=== PATIENT | male | born 1930 | race Caucasian/White ===

== ENCOUNTER 2016-04-29 10:52 | Inpatient (IN) | payer MEDICARE, OTHER ==
[~2016-04-29 10:52] MED LIST: ABACAVIR300 M1; ALL DAY ALLERGY10 M7 PO; ALTACHLORE OP; AUGMENTIN 500-1 EAC2 PO; BOOST237 ML PO; CALCIUM + VITA1 EAC1 PO; CALCIUM500 M1 PO; CLEOCIN HCL300 MG PO; COLACE100 M1 PO; COUMADIN2.5 M1 PO; COUMADIN2.5 MG PO; COUMADIN5 M1 PO; COUMADIN5 M2 PO; COUMADIN5 MG PO; COUMADIN7.5 M1 PO; COUMADIN7.5 MG PO; DOCETAXEL20 MG/1 ML IV; ELIGARD22.5 MG SQ; FERROUS GLUCON324 MG PO; FUROSEMIDE40 M2 PO; HORMONE; K-DUR20 ME1 PO; KETOCONAZOLE200 MG PO; KONSYL FORMULA PO; LASIX20 MG PO; LEVOTHYROXINE100 MC1 PO; LOVENOX100 MG/ML SQ; LUBRICATING TOP; LUPRON DEP IM; MEGACE400 MG/11 PO; MEGESTROL ACETA20 MG PO; MIDODRINE HCL10 M1 PO; MILK OF MAGNESIA PO; MINOCIN100 M2 PO; MIRALAX17 G1 PO; MIRALAX17 G2 PO; MORPHINE SULFAT15 M1 PO; MORPHINE SULFAT15 MG PO; MS CONTIN30 M1 PO; MULTI VITAMIN1 EAC1 PO; MULTIVITAMINS1 EAC6 PO; NORCO 5/3251 TA1 PO; NORCO 5/3251 TAB PO; OS-CAL 500+D31 EAC1 PO; PACERONE200 M1 PO; PANTOPRAZOLE SO40 M3 PO; PAROXETINE HCL PO; PAROXETINE HCL20 M1 PO; POTASSIUM CHLO10 ME2 PO; POTASSIUM CHLO20 MEQ PO; PREDNISOLONE5 MG PO; PREDNISONE5 MG PO; PROCHLORPERAZIN10 MG PO; PROTONIX40 M1 PO; REFRESH OPTIVE1 EAC2 OP; SALSALATE500 MG PO; STOOL SOFTENER100 M1 PO; TRIAMCINOLONE A15 GM TP; TYLENOL325 MG PO; VENLAFAXINE HCL25 M1 PO; XTANDI40 M1 PO; ZOFRAN4 M2 PO; ZOFRAN8 MG PO; ZOMETA4 MG/5 ML IV; ZYTIGA250 MG PO; [UNRECOGNIZED DRUG - OTHER] IM; [UNRECOGNIZED DRUG - OTHER] IV; magic mouthwash PO
[2016-04-29] MEDS ORDERED: ZYRTEC1010 PO (11:19)
[2016-04-29] MEDS ORDERED: GUAIFENESIN400 M1 PO (11:20)
[2016-04-29] MEDS ORDERED: GUAIFENESIN DM S5 M1 PO (11:20)
[2016-04-29 12:12] LABS: URINE BILIRUBIN NEGATIVE (NEG); URINE BLOOD LARGE (NEG); URINE GLUCOSE (UA) NEGATIVE (NEG); URINE KETONE NEGATIVE (NEG); URINE LEUKOCYTE ESTERASE NEGATIVE (NEG); URINE NITRITE NEGATIVE (NEG); URINE PROTEIN LARGE (NEG); URINE SPECIFIC GRAVITY 1.015 (1.003-1.030)
[2016-04-29 12:15] LABS: URINE APPEARANCE CLOUDY; URINE COLOR RED
[2016-04-29 12:17] LABS: INR 2.1 INR (0.9-1.1); PROTHROMBIN TIME 24.6 SECONDS (9.0-13.6)
[2016-04-29 12:18] LABS: BASO % 0.2 % (0-2); HCT-HEMATOCRIT 25.9 % (36.0-53.5); HGB-HEMOGLOBIN 8.3 gm/dl (13.5-17.0); IMMATURE GRANULOCYTES ABSOLUTE 0.04 tho/cmm (0-0.03); LYMPH % 12.1 % (20-45); LYMPH ABSOLUTE COUNT 0.5 tho/cmm (0.8-4.5); MCH (MEAN CORPUSCULAR HGB) 31.4 pg (28.0-32.0); MCV (MEAN CELL VOLUME) 98.1 fl (82.0-96.0); MEAN PLATELET VOLUME 10.2 cmc (9.4-12.4); MONO % 9.4 % (0-12); MONOCYTE ABSOLUTE COUNT 0.4 tho/cmm (0.0-1.2); NEUTROPHIL ABSOLUTE COUNT 3.1 tho/cmm (1.6-8.0); NEUTROPHIL-AUTOMATED 3.1 tho/cmm (1.6-8.0); NEUTROPHILS % 77.3 % (40-80); RED BLOOD COUNT 2.64 mil/cmm (4.40-5.70); RED CELL DISTRIBUTION WIDTH 18.7 % (12.4-16.4); WHITE BLOOD COUNT 4.1 tho/cmm (4.0-10.0)
[2016-04-29 12:19] LABS: URINE BACTERIA 1+; URINE RBC FULL FIELD /[HPF] (0-5)
[2016-04-29 12:27] LABS: ANION GAP 16 mmol/L (0-20); BLOOD UREA NITROGEN 36 mg/dl (6-24); CALCIUM 8.9 mg/dl (8.5-10.5); CARBON DIOXIDE-VENOUS 24 mmol/L (22-32); CHLORIDE 101 mmol/l (96-110); CREATININE 1.71 mg/dl (0.60-1.30); GLUCOSE 106 mg/dL (70-110); POTASSIUM 3.9 mmol/L (3.7-5.1); SODIUM 137 mmol/L (135-145); eGFR VALUE FOR BLACK 41 mL/Min
[2016-04-29 12:45] LABS: PLATELET COUNT 26 tho/cmm (150-450)
[2016-04-29] MEDS ORDERED: SODIUM CHLORID OP (15:00)
[2016-04-30 05:46] LABS: BASO % 0.4 % (0-2); HGB-HEMOGLOBIN 6.3 gm/dl (13.5-17.0); IMMATURE GRANULOCYTES ABSOLUTE 0.03 tho/cmm (0-0.03); IMMATURE GRANULOCYTES PERCENT 1.1 % (0-0.3); LYMPH ABSOLUTE COUNT 0.4 tho/cmm (0.8-4.5); MCV (MEAN CELL VOLUME) 98.5 fl (82.0-96.0); MONO % 13.2 % (0-12); MONOCYTE ABSOLUTE COUNT 0.4 tho/cmm (0.0-1.2); NEUTROPHIL ABSOLUTE COUNT 1.9 tho/cmm (1.6-8.0); NEUTROPHIL-AUTOMATED 1.9 tho/cmm (1.6-8.0); NEUTROPHILS % 71.3 % (40-80); RED BLOOD COUNT 1.97 mil/cmm (4.40-5.70); RED CELL DISTRIBUTION WIDTH 18.7 % (12.4-16.4); WHITE BLOOD COUNT 2.7 tho/cmm (4.0-10.0)
[2016-04-30 05:47] LABS: INR 2.4 INR (0.9-1.1); PROTHROMBIN TIME 28.1 SECONDS (9.0-13.6)
[2016-04-30 05:55] LABS: HCT-HEMATOCRIT 19.4 % (36.0-53.5); MCHC MEAN CORPUSCULAR HGB CONC 32.5 % (32.0-36.0); PLATELET COUNT 19 tho/cmm (150-450)
[2016-04-30 06:04] LABS: ANION GAP 13 mmol/L (0-20); BLOOD UREA NITROGEN 31 mg/dl (6-24); CALCIUM 7.8 mg/dl (8.5-10.5); CARBON DIOXIDE-VENOUS 25 mmol/L (22-32); CHLORIDE 104 mmol/l (96-110); CREATININE 1.35 mg/dl (0.60-1.30); GLUCOSE 92 mg/dL (70-110); POTASSIUM 4.1 mmol/L (3.7-5.1); SODIUM 138 mmol/L (135-145); eGFR VALUE FOR BLACK 55 mL/Min
[2016-04-30 21:36] LABS: BASO % 0.3 % (0-2); EOS % 0.3 % (0-7); HGB-HEMOGLOBIN 7.2 gm/dl (13.5-17.0); IMMATURE GRANULOCYTES ABSOLUTE 0.04 tho/cmm (0-0.03); IMMATURE GRANULOCYTES PERCENT 1.1 % (0-0.3); LYMPH % 10.8 % (20-45); LYMPH ABSOLUTE COUNT 0.4 tho/cmm (0.8-4.5); MCH (MEAN CORPUSCULAR HGB) 31.9 pg (28.0-32.0); MEAN PLATELET VOLUME 9.1 cmc (9.4-12.4); MONO % 13.7 % (0-12); MONOCYTE ABSOLUTE COUNT 0.5 tho/cmm (0.0-1.2); NEUTROPHIL ABSOLUTE COUNT 2.8 tho/cmm (1.6-8.0); NEUTROPHIL-AUTOMATED 2.8 tho/cmm (1.6-8.0); NEUTROPHILS % 73.8 % (40-80); RED BLOOD COUNT 2.26 mil/cmm (4.40-5.70); WHITE BLOOD COUNT 3.8 tho/cmm (4.0-10.0)
[2016-04-30 21:37] LABS: HCT-HEMATOCRIT 21.7 % (36.0-53.5); MCHC MEAN CORPUSCULAR HGB CONC 33.2 % (32.0-36.0)
[2016-04-30 21:42] LABS: PLATELET COUNT 36 tho/cmm (150-450)
[2016-04-30 22:10] LABS: INR 1.5 INR (0.9-1.1)
[2016-05-01 06:29] LABS: INR 1.3 INR (0.9-1.1); PROTHROMBIN TIME 15.4 SECONDS (9.0-13.6)
[2016-05-01 06:30] LABS: BASO % 0.3 % (0-2); EOS % 0.3 % (0-7); HGB-HEMOGLOBIN 7.2 gm/dl (13.5-17.0); IMMATURE GRANULOCYTES ABSOLUTE 0.06 tho/cmm (0-0.03); IMMATURE GRANULOCYTES PERCENT 1.9 % (0-0.3); LYMPH % 10.2 % (20-45); LYMPH ABSOLUTE COUNT 0.3 tho/cmm (0.8-4.5); MCH (MEAN CORPUSCULAR HGB) 31.3 pg (28.0-32.0); MCV (MEAN CELL VOLUME) 95.7 fl (82.0-96.0); MEAN PLATELET VOLUME 10.4 cmc (9.4-12.4); MONO % 10.5 % (0-12); MONOCYTE ABSOLUTE COUNT 0.3 tho/cmm (0.0-1.2); NEUTROPHIL ABSOLUTE COUNT 2.4 tho/cmm (1.6-8.0); NEUTROPHIL-AUTOMATED 2.4 tho/cmm (1.6-8.0); NEUTROPHILS % 76.8 % (40-80); WHITE BLOOD COUNT 3.1 tho/cmm (4.0-10.0)
[2016-05-01 06:35] LABS: MCHC MEAN CORPUSCULAR HGB CONC 32.7 % (32.0-36.0); PLATELET COUNT 38 tho/cmm (150-450)
[2016-05-01 06:40] LABS: ANION GAP 12 mmol/L (0-20); BLOOD UREA NITROGEN 20 mg/dl (6-24); CALCIUM 8.2 mg/dl (8.5-10.5); CARBON DIOXIDE-VENOUS 26 mmol/L (22-32); CHLORIDE 108 mmol/l (96-110); CREATININE 1.04 mg/dl (0.60-1.30); GLUCOSE 84 mg/dL (70-110); POTASSIUM 3.9 mmol/L (3.7-5.1); SODIUM 142 mmol/L (135-145); eGFR VALUE FOR BLACK 76 mL/Min
[2016-05-02 06:50] LABS: INR 1.2 INR (0.9-1.1); PROTHROMBIN TIME 14.4 SECONDS (9.0-13.6)
[2016-05-02 11:55] LABS: EOS % 0.2 % (0-7); HCT-HEMATOCRIT 22.6 % (36.0-53.5); HGB-HEMOGLOBIN 7.4 gm/dl (13.5-17.0); IMMATURE GRANULOCYTES ABSOLUTE 0.06 tho/cmm (0-0.03); IMMATURE GRANULOCYTES PERCENT 1.4 % (0-0.3); LYMPH % 9.8 % (20-45); LYMPH ABSOLUTE COUNT 0.4 tho/cmm (0.8-4.5); MCH (MEAN CORPUSCULAR HGB) 31.4 pg (28.0-32.0); MCHC MEAN CORPUSCULAR HGB CONC 32.7 % (32.0-36.0); MCV (MEAN CELL VOLUME) 95.8 fl (82.0-96.0); MEAN PLATELET VOLUME 9.4 cmc (9.4-12.4); MONO % 10.7 % (0-12); MONOCYTE ABSOLUTE COUNT 0.5 tho/cmm (0.0-1.2); NEUTROPHIL ABSOLUTE COUNT 3.3 tho/cmm (1.6-8.0); NEUTROPHIL-AUTOMATED 3.3 tho/cmm (1.6-8.0); NEUTROPHILS % 77.9 % (40-80); RED BLOOD COUNT 2.36 mil/cmm (4.40-5.70); RED CELL DISTRIBUTION WIDTH 20.2 % (12.4-16.4); WHITE BLOOD COUNT 4.3 tho/cmm (4.0-10.0)
[2016-05-02 11:56] LABS: PLATELET COUNT 35 tho/cmm (150-450)
[2016-05-03 06:24] LABS: BASO % 0.3 % (0-2); EOS % 1.3 % (0-7); EOSINOPHIL ABSOLUTE COUNT 0.1 tho/cmm (0.0-0.7); HGB-HEMOGLOBIN 8.1 gm/dl (13.5-17.0); IMMATURE GRANULOCYTES ABSOLUTE 0.06 tho/cmm (0-0.03); IMMATURE GRANULOCYTES PERCENT 1.5 % (0-0.3); LYMPH % 14.1 % (20-45); LYMPH ABSOLUTE COUNT 0.6 tho/cmm (0.8-4.5); MCH (MEAN CORPUSCULAR HGB) 31.9 pg (28.0-32.0); MCV (MEAN CELL VOLUME) 93.3 fl (82.0-96.0); MEAN PLATELET VOLUME 9.5 cmc (9.4-12.4); MONO % 11.6 % (0-12); MONOCYTE ABSOLUTE COUNT 0.5 tho/cmm (0.0-1.2); NEUTROPHIL ABSOLUTE COUNT 2.8 tho/cmm (1.6-8.0); NEUTROPHIL-AUTOMATED 2.8 tho/cmm (1.6-8.0); NEUTROPHILS % 71.2 % (40-80); RED BLOOD COUNT 2.54 mil/cmm (4.40-5.70); RED CELL DISTRIBUTION WIDTH 20.6 % (12.4-16.4); WHITE BLOOD COUNT 3.9 tho/cmm (4.0-10.0)
[2016-05-03 06:28] LABS: HCT-HEMATOCRIT 23.7 % (36.0-53.5); MCHC MEAN CORPUSCULAR HGB CONC 34.2 % (32.0-36.0)
[2016-05-03 06:32] LABS: PLATELET COUNT 30 tho/cmm (150-450)
[2016-05-03 06:42] LABS: ANION GAP 13 mmol/L (0-20); BLOOD UREA NITROGEN 18 mg/dl (6-24); CARBON DIOXIDE-VENOUS 21 mmol/L (22-32); CHLORIDE 111 mmol/l (96-110); CREATININE 1.05 mg/dl (0.60-1.30); GLUCOSE 77 mg/dL (70-110); INR 1.2 INR (0.9-1.1); POTASSIUM 3.9 mmol/L (3.7-5.1); SODIUM 141 mmol/L (135-145); eGFR VALUE FOR BLACK 75 mL/Min
[2016-05-04 06:20] LABS: INR 1.2 INR (0.9-1.1); PROTHROMBIN TIME 13.7 SECONDS (9.0-13.6)
[2016-05-04 09:20] LABS: HCT-HEMATOCRIT 25.5 % (36.0-53.5); HGB-HEMOGLOBIN 8.5 gm/dl (13.5-17.0); IMMATURE GRANULOCYTES ABSOLUTE 0.06 tho/cmm (0-0.03); IMMATURE GRANULOCYTES PERCENT 2.1 % (0-0.3); LYMPH % 15.4 % (20-45); LYMPH ABSOLUTE COUNT 0.4 tho/cmm (0.8-4.5); MCH (MEAN CORPUSCULAR HGB) 31.5 pg (28.0-32.0); MCHC MEAN CORPUSCULAR HGB CONC 33.3 % (32.0-36.0); MCV (MEAN CELL VOLUME) 94.4 fl (82.0-96.0); MEAN PLATELET VOLUME 10.1 cmc (9.4-12.4); MONO % 9.4 % (0-12); MONOCYTE ABSOLUTE COUNT 0.3 tho/cmm (0.0-1.2); NEUTROPHIL ABSOLUTE COUNT 2.1 tho/cmm (1.6-8.0); NEUTROPHIL-AUTOMATED 2.1 tho/cmm (1.6-8.0); NEUTROPHILS % 72.1 % (40-80); RED CELL DISTRIBUTION WIDTH 20.1 % (12.4-16.4); WHITE BLOOD COUNT 2.9 tho/cmm (4.0-10.0)
[2016-05-04 09:22] LABS: PLATELET COUNT 35 tho/cmm (150-450)
[2016-05-04 09:56] LABS: ANION GAP 16 mmol/L (0-20); BLOOD UREA NITROGEN 15 mg/dl (6-24); CALCIUM 8.1 mg/dl (8.5-10.5); CARBON DIOXIDE-VENOUS 21 mmol/L (22-32); CHLORIDE 111 mmol/l (96-110); CREATININE 1.12 mg/dl (0.60-1.30); GLUCOSE 110 mg/dL (70-110); POTASSIUM 3.5 mmol/L (3.7-5.1); SODIUM 144 mmol/L (135-145); eGFR VALUE FOR BLACK 69 mL/Min
[2016-05-05 06:58] LABS: EOS % 1.2 % (0-7); HCT-HEMATOCRIT 24.6 % (36.0-53.5); HGB-HEMOGLOBIN 8.2 gm/dl (13.5-17.0); IMMATURE GRANULOCYTES ABSOLUTE 0.05 tho/cmm (0-0.03); IMMATURE GRANULOCYTES PERCENT 1.4 % (0-0.3); LYMPH % 12.7 % (20-45); LYMPH ABSOLUTE COUNT 0.4 tho/cmm (0.8-4.5); MCH (MEAN CORPUSCULAR HGB) 31.5 pg (28.0-32.0); MCHC MEAN CORPUSCULAR HGB CONC 33.3 % (32.0-36.0); MCV (MEAN CELL VOLUME) 94.6 fl (82.0-96.0); MEAN PLATELET VOLUME 9.9 cmc (9.4-12.4); MONO % 11.8 % (0-12); MONOCYTE ABSOLUTE COUNT 0.4 tho/cmm (0.0-1.2); NEUTROPHIL ABSOLUTE COUNT 2.5 tho/cmm (1.6-8.0); NEUTROPHIL-AUTOMATED 2.5 tho/cmm (1.6-8.0); NEUTROPHILS % 72.9 % (40-80); RED CELL DISTRIBUTION WIDTH 19.9 % (12.4-16.4); WHITE BLOOD COUNT 3.5 tho/cmm (4.0-10.0)
[2016-05-05 06:59] LABS: PLATELET COUNT 33 tho/cmm (150-450)
[2016-05-05 07:03] LABS: INR 1.2 INR (0.9-1.1); PROTHROMBIN TIME 13.6 SECONDS (9.0-13.6)
[2016-05-05 07:10] LABS: ANION GAP 14 mmol/L (0-20); BLOOD UREA NITROGEN 14 mg/dl (6-24); CALCIUM 8.2 mg/dl (8.5-10.5); CARBON DIOXIDE-VENOUS 21 mmol/L (22-32); CHLORIDE 112 mmol/l (96-110); CREATININE 0.94 mg/dl (0.60-1.30); GLUCOSE 81 mg/dL (70-110); POTASSIUM 3.8 mmol/L (3.7-5.1); SODIUM 143 mmol/L (135-145); eGFR VALUE FOR BLACK 85 mL/Min
[2016-05-05] MEDS ORDERED: MIDODRINE HCL5 M1 PO (11:33)
[2016-05-05] MEDS ORDERED: IMODIUM A-D2 M4 PO (14:30)
== END 2016-05-05 15:20 | disposition hospice, home (50) | DRG 723 ==
LOC: EDMED 10:52 → EMR2 15:37 → 5WD 16:43
PROVIDERS: Emergency Medicine; ADMIT Hospitalist
PROC: 30233N1 Transfusion of Nonautologous Red Blood Cells into Peripheral Vein, Percutaneous Approach (ICD-10-PCS; principal; 2016-04-30)
DX: C61 Malignant neoplasm of prostate (principal); C79.51 Secondary malignant neoplasm of bone; N17.9 Acute kidney failure, unspecified; D61.818 Other pancytopenia; D69.59 Other secondary thrombocytopenia; I27.2 Other secondary pulmonary hypertension; D62 Acute posthemorrhagic anemia; D69.6 Thrombocytopenia, unspecified; D64.9 Anemia, unspecified; I48.0 Paroxysmal atrial fibrillation; I95.1 Orthostatic hypotension; M19.90 Unspecified osteoarthritis, unspecified site; N18.9 Chronic kidney disease, unspecified; R19.7 Diarrhea, unspecified; R29.6 Repeated falls; R31.0 Gross hematuria; R33.9 Retention of urine, unspecified; Z51.5 Encounter for palliative care; Z66 Do not resuscitate; Z87.11 Personal history of peptic ulcer disease
CPT/HCPCS: J3430; J3480; J7030; J7050; P9033; P9040